=== PATIENT | female | born 1990 | race Caucasian/White ===

== ENCOUNTER → 2019-12-22 15:41 | Outpatient (CLI) | payer OTHER, SELFPAY ==
[2019-12-22 14:35] VITALS: BMI 34.0
[2019-12-22 16:13] LABS: Absolute Lymphocyte Count 2.74 X10^3/uL (0.83-4.51); Absolute Neutrophil Count 8.2 X10^3/uL (2.0-7.7); Basophil# 0.06 X10^3/uL; Basophil% 0.5 % (0-1); Eosinophil# 0.29 X10^3/uL; Eosinophils% 2.4 % (0-5); Hematocrit 39.8 % (37-47); Hemoglobin 12.3 g/dL (12.0-15.0); Lymphocyte # 2.74 X10^3/ul (4.0); Lymphocyte % 22.6 % (19-41); Mean Corp Hgb Conc 30.9 g/dL (32-36); Mean Corpuscular Hgb 27.6 pg (27.0-32.0); Mean Corpuscular Volume 89.2 fL (81-99); Mean Platelet Vol. 11.1 fl (6.2-12.0); Monocyte# 0.76 X10^3/uL; Monocyte% 6.3 % (0-10); NRBC Flagged by Analyzer 0 % (0-5); Neutrophil # 8.24 X10^3/uL (2.7-7.7); Neutrophil % 67.9 % (47-70); Platelet Count 336 K/mm3 (150-450); RBC Distribution Width CV 12.3 % (11.6-14.6); Red Blood Count 4.46 M/mm3 (4.2-5.4); White Blood Count 12.1 K/mm3 (4.4-11.0)
[2019-12-22 17:06] LABS: Estradiol 107.3 pg/mL; Follicle Stimulating Hormone 3.9 mIU/mL; Prolactin 12.5 ng/mL; T4 Free Direct 1.16 ng/dL (0.76-1.46); Thyroid Stim Hormone (TSH) 0.82 uIU/mL (0.358-3.74)
[2019-12-25 16:32] LABS: HPV Reflexed? NOT INDICATED
[2019-12-27 09:37] LABS: Testosterone Free 3.7 pg/mL (0.0-4.2)
[2019-12-29 13:10] LABS: 17-Hydroxyprogesterone 61 ng/dL (.)
== END ==
PROVIDERS: Referring Provider Obstetrics & Gynecology; Visit Provider Obstetrics & Gynecology
DX: Z12.4 Encounter for screening for malignant neoplasm of cervix (principal); E28.2 Polycystic ovarian syndrome
CPT/HCPCS: 36415; 82627; 82670; 83001; 83498; 84146; 84402; 84439; 84443; 85025; 88175; 82626; G0145

== ENCOUNTER 2021-08-18 16:20 | Outpatient (CLI) | payer OTHER, SELFPAY | END 2021-08-18 23:59 | disposition short-term general hospital (02) | LOC: LABSPEC 16:21 | PROVIDERS: Visit Provider Obstetrics & Gynecology | DX: R10.2 Pelvic and perineal pain (principal); G89.29 Other chronic pain | CPT/HCPCS: 87086; 87088 ==

== ENCOUNTER 2021-08-19 07:53 | Outpatient (CLI) | payer OTHER, SELFPAY ==
--- NOTE | 2021-08-19 07:58 | US_ITS ---
STUDY: ULTRASOUND OF THE FEMALE PELVIS - COMPLETE REASON FOR EXAM: Female, 31 years old. Chronic right pelvic pain. Patient has a history of polycystic ovary disease. LMP: 08/13/2021. TECHNIQUE: Transabdominal and Transvaginal TECHNICAL QUALITY: Adequate. COMPARISON: None. FINDINGS: The uterus is anteverted and is in a midline position. The uterus measures 7.3 cm x 4 cm x 3.2 cm. There is a Nabothian cyst of the cervix. The endometrium measures 7.8 mm in thickness, and is heterogeneous (striated). There is no demonstrated endometrial mass. There is no demonstrated myometrial mass. I.U.D. - The patient does not have an I.U.D. The right ovary is visualized. The right ovary measures 4.1 cm x 3.6 cm x 2.2 cm. There is no right ovarian cyst or ovarian mass. There is no visualized right adnexal mass or complex lesion. There is normal arterial and normal venous vascularity. The left ovary is visualized. The left ovary measures 4.2 cm x 3.6 cm x 1.8 cm. There is no left ovarian cyst or ovarian mass. There is no visualized left adnexal mass or complex lesion. There is normal arterial and normal venous vascularity. There is no fluid in the cul-de-sac. The pre void volume of the bladder was ml. The post void volume of the bladder was ml. Polycystic ovary disease: Yes. Multiple small follicles are seen in the peripheral aspects of both ovaries. US/Pelvic (Non ) IMPRESSION: Multiple small follicles are seen in the peripheral aspects of both right and left ovaries suggestive polycystic ovaries. Electronically Signed: Lester Ellsworth MD at 9:22 EST , Service support ,
--- NOTE | 2021-08-19 07:58 | US_ITS ---
STUDY: ULTRASOUND OF THE FEMALE PELVIS - COMPLETE REASON FOR EXAM: Female, 31 years old. Chronic right pelvic pain. Patient has a history of polycystic ovary disease. LMP: 08/13/2021. TECHNIQUE: Transabdominal and Transvaginal TECHNICAL QUALITY: Adequate. COMPARISON: None. FINDINGS: The uterus is anteverted and is in a midline position. The uterus measures 7.3 cm x 4 cm x 3.2 cm. There is a Nabothian cyst of the cervix. The endometrium measures 7.8 mm in thickness, and is heterogeneous (striated). There is no demonstrated endometrial mass. There is no demonstrated myometrial mass. I.U.D. - The patient does not have an I.U.D. The right ovary is visualized. The right ovary measures 4.1 cm x 3.6 cm x 2.2 cm. There is no right ovarian cyst or ovarian mass. There is no visualized right adnexal mass or complex lesion. There is normal arterial and normal venous vascularity. The left ovary is visualized. The left ovary measures 4.2 cm x 3.6 cm x 1.8 cm. There is no left ovarian cyst or ovarian mass. There is no visualized left adnexal mass or complex lesion. There is normal arterial and normal venous vascularity. There is no fluid in the cul-de-sac. The pre void volume of the bladder was ml. The post void volume of the bladder was ml. Polycystic ovary disease: Yes. Multiple small follicles are seen in the peripheral aspects of both ovaries. US/Transvaginal Non- IMPRESSION: Multiple small follicles are seen in the peripheral aspects of both right and left ovaries suggestive polycystic ovaries. Electronically Signed: Lester Ellsworth MD at 9:22 EST , Service support ,
[2021-08-19 09:27] LABS: Absolute Lymphocyte Count 1.88 X10^3/uL (0.83-4.51); Basophil# 0.04 X10^3/uL; Basophil% 0.6 % (0-1); Eosinophil# 0.09 X10^3/uL; Eosinophils% 1.4 % (0-5); Hematocrit 40.2 % (37-47); Hemoglobin 12.5 g/dL (12.0-15.0); Lymphocyte # 1.88 X10^3/ul (0.83-4.51); Lymphocyte % 28.8 % (19-41); Mean Corp Hgb Conc 31.1 g/dL (32-36); Mean Corpuscular Hgb 27.4 pg (27.0-32.0); Mean Corpuscular Volume 88.2 fL (81-99); Mean Platelet Vol. 10.9 fl (6.2-12.0); Monocyte# 0.54 X10^3/uL; Monocyte% 8.3 % (0-10); NRBC Flagged by Analyzer 0 % (0-5); Neutrophil # 3.96 X10^3/uL (2.7-7.7); Neutrophil % 60.6 % (47-70); Platelet Count 335 K/mm3 (150-450); RBC Distribution Width CV 12.8 % (11.6-14.6); RBC Distribution Width SD 41.3 fl (35.1-43.9); Red Blood Count 4.56 M/mm3 (4.2-5.4); White Blood Count 6.5 K/mm3 (4.4-11.0)
[2021-08-19 09:54] LABS: Glucose 91 mg/dL (74-106)
== END 2021-08-19 23:59 | disposition short-term general hospital (02) ==
PROVIDERS: Referring Provider Obstetrics & Gynecology; Visit Provider Obstetrics & Gynecology
DX: N83.01 Follicular cyst of right ovary (principal); N83.02 Follicular cyst of left ovary; R10.2 Pelvic and perineal pain; G89.29 Other chronic pain
CPT/HCPCS: 36415; 76830; 76856; 82947; 85025; 93976

== ENCOUNTER → 2025-04-27 | Outpatient (CLI) | payer BC, SELFPAY | END | disposition home or self-care (01) | PROVIDERS: Referring Provider Otolaryngology; Visit Provider Otolaryngology | DX: J02.9 Acute pharyngitis, unspecified (principal) | CPT/HCPCS: 87070 ==